=== PATIENT | male | born 1955 ===

== ENCOUNTER → 2019-02-26 | Outpatient (CLI) | payer OTHER | LOC: LAB 18:03 → LAB SHORT 18:03 | DX: Z48.817 Encounter for surgical aftercare following surgery on the skin and subcutaneous tissue (principal); L08.9 Local infection of the skin and subcutaneous tissue, unspecified; L81.4 Other melanin hyperpigmentation | CPT/HCPCS: 87070; 87077; 87147; 87186; 87205 ==